=== PATIENT | male | born 1965 ===

== ENCOUNTER 2020-08-21 12:06 | Day surgery (SDC) | payer BC ==
[~2020-08-21] VITALS: Ht 185.4 cm; Wt 91.0 kg
[~2020-08-21 12:06] MED LIST: MULTIPLE VITAM1 EACH PO; VITAMIN D325 MC3 PO
== END 2020-08-21 14:00 | disposition home or self-care (01) ==
LOC: ORSCSDS 12:06
PROVIDERS: Student in an Organized Health Care Education/Training Program
PROC: 0DBN8ZX Excision of Sigmoid Colon, Via Natural or Artificial Opening Endoscopic, Diagnostic (ICD-10-PCS; principal; 2020-08-21 13:45)
DX: Z12.11 Encounter for screening for malignant neoplasm of colon (principal); K63.5 Polyp of colon
CPT/HCPCS: 88305; J2704; J7120